=== PATIENT | female | born 1960 | race American Indian/Alaskan Native ===

== ENCOUNTER 2017-07-07 07:45 | Outpatient (CLI) | payer OTHER ==
--- NOTE | 2017-07-07 20:56 | XRay Report ---
FINAL REPORT PROCEDURE: Bilateral knees. TECHNIQUE: Four views of each knee. HISTORY: Bilateral knee pain. COMPARISON: No prior studies are available for comparison. FINDINGS: Right knee: There is a total knee prosthesis in satisfactory position. There are no fractures. The soft tissues are unremarkable. There is no evidence of a knee effusion. Left knee: The bones appear intact without fracture or dislocation. There are small osteophytes arising from the distal femur and proximal tibia. There is mild narrowing of the medial compartment of the knee joint. The soft tissues are unremarkable. There is no evidence of a knee effusion. IMPRESSION: Right total knee prosthesis. Moderate left knee osteoarthritis.
== END 2017-07-07 07:46 | disposition home or self-care (01) ==
LOC: SPVIMAG 07:45
PROVIDERS: ATTEND Orthopaedic Surgery Sports Medicine
DX: M17.12 Unilateral primary osteoarthritis, left knee (principal); Z96.651 Presence of right artificial knee joint

== ENCOUNTER 2019-02-16 07:19 | Day surgery (SDC) | payer OTHER ==
[2019-02-16] MEDS ORDERED: NACL 0.9% 1000 ML 1,000 ML IV SCH (08:00)
[2019-02-16] MEDS ORDERED: XYLOCAINE MPF 2% ONE (10:30)
--- NOTE | 2019-02-16 10:56 | Anesthesia Consultation ---
Anesthesia Consult and Med Hx Date of service: 02/16/19 - Airway Anesthetic Teeth Evaluation: Poor ROM Head & Neck: Adequate Mental/Hyoid Distance: Inadequate Mallampati Class: Class I Intubation Access Assessment: Probably Good - Pulmonary Exam CTA: Yes - Cardiac Exam Cardiac Exam: RRR - Pre-Operative Health Status ASA Pre-Surgery Classification: ASA3 Proposed Anesthetic Plan: MAC - Pulmonary Hx Smoking: No Hx Respiratory Symptoms: No Hx Sleep Apnea: Yes (noncompliant with CPAP) - Cardiovascular System Hx Hypertension: Yes (took antihypertensives today) Hx Heart Attack/AMI: No Hx Percutaneous Transluminal Coronary Angioplasty (PTCA): No Hx Cardia Arrhythmia: No - Central Nervous System Hx Seizures: No CVA: No - Gastrointestinal Hx Gastroesophageal Reflux Disease: Yes - Endocrine Hx Renal Disease: No Hx Liver Disease: No Hx Non-Insulin Dependent Diabetes: Yes Hx Thyroid Disease: No - Other Systems Hx Obesity: Yes (BMI 43) - Additional Comments Anesthesia Medical History Comments: No hx anesthetic complications.
--- NOTE | 2019-02-16 10:56 | Anesthesia Day of Surgery ---
Anesthesia Day of Surgery - Day of Surgery Patient Examined: Yes Patient H&P Reviewed: Yes Patient is NPO: Yes
[2019-02-16] MEDS ORDERED: DIPRIVAN 10 MG/ML IV ONE ×2 (11:01→11:14)
--- NOTE | 2019-02-16 11:15 | Procedure Note ---
Date of procedure: 02/16/19 Pre-op diagnosis: GERD Post-op diagnosis: other (Moderate, ERosive Esophagitis/Moderate, Hiatal Hernia/Gastritis and Gastric Erosion/Duodenal Erosion) Procedure: EGD with Biopsy Anesthesia: MAC Surgeon: ILENE WARD Estimated blood loss: minimal Pathology: list Specimen disposition: to lab Condition: stable Disposition: same day (Treat with PPI and avoid aspirin and NSAID for 5 days and follow up in 1 to 2 weeks ([phone]).)
[2019-02-16 12:00] VITALS: BP 156/77
--- NOTE | 2019-02-16 12:29 | Operative Report ---
PROCEDURE: Esophagogastroduodenoscopy and biopsy. INDICATIONS: A 58-year-old slightly obese -[place] female with an underlying history of diabetes mellitus, hypertension, and arthritis, who has been having GERD symptoms in spite of treatment. EGD was done to assess for the problem. DESCRIPTION OF PROCEDURE: The procedure was done after getting informed consent with MAC anesthesia. Instrument was passed through the hypopharynx into the esophagus, which showed moderately erosive esophagitis. Photo documentation and biopsy was obtained. The stomach showed antral erosion and gastritis. Additional biopsy was done from the gastric antrum, gastric body and angular incisura to rule out for H. pylori and atrophic gastritis. The pylorus is patent. The duodenum in the bulb showed duodenal erosions. Stomach also showed a moderate hiatal hernia on the retroverted view. There was minimal bleeding from the biopsy sites and no complications associated with the procedure. ASSESSMENT: Gastroesophageal reflux disease symptoms, moderate erosive esophagitis, gastric erosion, gastritis, moderate hiatal hernia, duodenal erosion. PLAN: To treat the patient with PPI, have the patient avoid aspirin and aspirin-related products for the next few days. Follow up in the office in about a week's time. If the patient is positive for H. pylori, the patient will be treated for that and the patient will be asked to avoid aspirin and aspirin-related products for the next several days. The patient's procedure was done in the GI lab with assistance of RN, Lisa Zaidi and the semiconductor development technicianShyanne and assistance with anesthesia. JOB# [id number] SONIDO/[email or web address]
== END 2019-02-16 07:20 | disposition home or self-care (01) ==
LOC: GIO 07:19
DX: K21.0 Gastro-esophageal reflux disease with esophagitis (principal); K29.70 Gastritis, unspecified, without bleeding; K44.9 Diaphragmatic hernia without obstruction or gangrene; M19.90 Unspecified osteoarthritis, unspecified site; K31.89 Other diseases of stomach and duodenum; I10 Essential (primary) hypertension; E11.9 Type 2 diabetes mellitus without complications; E78.00 Pure hypercholesterolemia, unspecified; G47.30 Sleep apnea, unspecified; E66.9 Obesity, unspecified; Z79.84 Long term (current) use of oral hypoglycemic drugs; Z79.899 Other long term (current) drug therapy; Z87.891 Personal history of nicotine dependence; Z68.41 Body mass index [BMI] 40.0-44.9, adult; Z98.890 Other specified postprocedural states; Z96.653 Presence of artificial knee joint, bilateral
CPT/HCPCS: 43239; 82962; 88305; 88312; 88342; J2704; J7030